=== PATIENT | female | born 2000 | race Caucasian/White ===

== ENCOUNTER 2022-05-20 21:34 | Emergency (ER) | payer SELFPAY ==
[2022-05-20 21:53] VITALS: BP 123/80; PULSE 88; RESP 18; TEMP 37; O2SAT 97; BMI 25.0
[2022-05-20 22:50] LABS: HCG Qualitative Urine. Negative (Negative)
[2022-05-20 23:07] LABS: Bilirubin Urine 1+ (Negative); Blood Urine 3+ (Negative); Glucose Urine UA Norm (Normal); Ketones Urine 2+ (Negative); Leukocyte Esterase Urine 2+ (Negative); Nitrate Urine Negative (Negative); Protein Urine 2+ (Negative); Urine Appearance Cloudy (CLEAR); Urine Color Dark Yellow (Yellow); Urobilinogen Urine 4 mg/dL (Negative); pH Urine 5 (5-7)
[2022-05-20 23:08] LABS: Add Urine Microscopic? YES; Bacteria Urine 2+ /hpf; Mucus Urine 1+ /hpf; RBC Urine TOO NUMEROUS TO CNT /hpf (0-2); WBC Urine 40-55 /hpf (0-5)
[2022-05-20 23:09] LABS: Add Urine Culture? No
[2022-05-20 23:15] LABS: Basophils % 0.2 %; Hematocrit 41.8 % (37.0-47.0); Hemoglobin 14.1 g/dL (11.5-15.3); Lymphocytes # 1.7 10^3/uL (1.5-6.5); Lymphocytes % 7.5 %; Mean Corpuscular HGB Conc 33.7 g/dL (30.0-36.0); Mean Corpuscular Volume 94.8 fl (81-99); Mean Platelet Volume 9.5 fL (7.4-10.4); Monocytes # 1.1 10^3/uL (0.2-0.9); Monocytes % 4.7 %; Neutrophils # 20.05 10^3/uL (1.8-8.0); Neutrophils % 87.1 %; Nucleated Red Blood Cells % 0 %; Platelet Count 242 10^3/cmm (130-400); Red Blood Count 4.41 10^6/uL (4.1-5.3); Red Cell Distribution Width 11.9 % (12.1-15.1)
[2022-05-20 23:37] LABS: Alanine Aminotransferase 7 U/L (0-33); Albumin Level 4.4 g/dL (3.5-5.2); Alkaline Phosphatase 83 U/L (35-105); Anion Gap 16.6 (5-19); Aspartate Amino Transferase 10 U/L (0-32); Blood Urea Nitrogen 9 mg/dL (6-20); Calcium 9.5 mg/dL (8.5-10.5); Carbon Dioxide 21 mmol/L (22-29); Chloride 101 mmol/L (98-107); Globulin 2.7 g/dL (1.3-4.6); Glomerular Filtration Rate 157.3 mL/min (90-130); Glucose 98 mg/dL (65-115); Lipase 8 U/L (13-60); Osmolality Calculated 279 mOsm/kg (285-295); Potassium 3.6 mmol/L (3.5-5.1); Sodium 135 mmol/L (136-145); Total Bilirubin 1.4 mg/dL (0.15-1.2); Total Protein 7.1 g/dL (6.6-8.7)
--- NOTE | 2022-05-20 23:41 | CTR_ITS ---
PROCEDURE INFORMATION: Exam: CT Abdomen And Pelvis With Contrast Exam date and time: 05/20/2022 11:59 PM Age: 21 years old Clinical indication: Abdominal pain; Additional info: Pain wbc over 20 TECHNIQUE: Imaging protocol: Computed tomography of the abdomen and pelvis with contrast. Radiation optimization: All CT scans at this facility use at least one of these dose optimization techniques: automated exposure control; mA and/or kV adjustment per patient size (includes targeted exams where dose is matched to clinical indication); or iterative reconstruction. Contrast material: OMNI 350; Contrast volume: 100 ml; Contrast route: INTRAVENOUS (IV); COMPARISON: No relevant prior studies available. RADIATION DOSE METRICS: Total DLP (mGy-cm): 439.68 FINDINGS: Lungs: The lung bases are clear. Liver: Unremarkable. Gallbladder and bile ducts: No definite gallbladder abnormality by CT. No biliary tree dilation. Pancreas: Unremarkable. Spleen: Unremarkable. Adrenal glands: Unremarkable. Kidneys and ureters: No hydronephrosis of either kidney. No visible ureteral calculus. 6 mm possible cyst in the lower left kidney, too small to accurately characterize by CT. The kidneys otherwise enhance homogeneously. No perinephric fluid. Stomach and bowel: Multiple small bowel loops are fluid-filled and/or borderline prominent in size. The overall appearance is not strongly suggestive of significant small bowel obstruction at this time. This appearance could be secondary to some form of gastroenteritis. Please correlate clinically. If there is clinical suspicion for small bowel obstruction, follow-up may be helpful to exclude progression. Appendix: The appendix is not identified with certainty, however no pericecal inflammatory changes are seen. Intraperitoneal space: No free intraperitoneal air, or ascites. Vasculature: No evidence for abdominal aortic aneurysm. Lymph nodes: No retroperitoneal adenopathy. Urinary bladder: Unremarkable as visualized. Reproductive: No definite abnormal ovarian/adnexal cyst or mass by CT. Bones/joints: No significant acute finding. Soft tissues: No significant acute finding. CT/CT abdomen pelvis w con* [id number] IMPRESSION: 1. Multiple small bowel loops are fluid-filled and/or borderline prominent in size, see above discussion. This appearance could be secondary to some form of gastroenteritis. 2. No evidence to suggest appendicitis, however a normal appendix is not definitely visible. See above discussion. 3. No free intraperitoneal air. 4. Other findings discussed above. COMMENTS: Consistent with the [employer]'s Incidental Findings Committee white paper (J Am Stephen Radiol 2018): Any incidental renal lesion less than 1 cm or classified as too small to characterize, or any incidental cystic renal lesion characterized as simple-appearing, is likely benign. No follow-up imaging is recommended for these lesions per consensus recommendations based on imaging criteria.
[2022-05-20] MEDS: iohexol 350 mg/mL 500 mL Btl (per mL) IV (23:46)
--- NOTE | 2022-05-21 00:05 | ED_ITS ---
HPI - Abdominal Pain General: Chief Complaint: Abdominal Pain Stated Complaint: abd pain Time Seen by Provider: 05/20/22 21:40 History of Present Illness: 21 yo female patient presents to ER with abd pain, nausea and vomiting since this am. Pt states its all over her abd. Pt denies any urinary symptoms or fever. Pt denies any back pain, cough or congestion. Pt states she is otherwise healthy. Associated Symptoms: Denies change in bowel habits, chills, constipation, GI cramping, diarrhea, dysuria, fever(s), hematuria, hematemesis and syncope Related Data: Date of Last Menstrual Period: 05/15/22 Review of Systems Const: Denies: fever(s), chills, body aches, change in appetite, change in weight, fatigue, malaise or diaphoresis Eyes: Denies: change in vision, blurry vision, blind spots, photophobia, eye discomfort, eye discharge, eye redness, floaters or seeing flashes ENMT: Denies: throat pain, uvular edema, enlarged tonsils, odynophagia, hoarseness, mouth pain, swelling of lips/tongue, oral sores, bleeding gums, dental pain, dry mouth, ear or mastoid pain, ear discharge, change in hearing, tinnitus, disequilibrium, nasal discharge, nasal congestion, post nasal drip or sinus pain Card: Denies: chest pain, palpitations, irregular heart rhythm, edema, swelling of feet/ankles, lightheadedness, syncope, pre-syncope, dyspnea on exertion, orthopnea, leg pain with exertion or acrocyanosis Resp: Denies: dyspnea, productive cough, non-productive cough, wheezing, stridor, pain on inspiration, change in phlegm color, hemoptysis or chest congestion GI: Denies: hematemesis, dysphagia, diarrhea, constipation, GI cramping, change in bowel habits or rectal pain : Denies: flank pain, difficulty voiding, dysuria, urinary frequency, urinary urgency, urinary hesitancy or hematuria Musc: Denies: neck pain, back pain, extremity pain, extremity swelling, joint pain, joint swelling, joint redness, joint warmth or deformity Skin/Breast: Denies: rash, pruritus, erythema, sores, new lesions, changes in skin color or dry skin Neuro: Denies: headache(s), numbness in extremities, weakness in extremities, sensory changes, lack of coordination, difficulty walking, frequent falls, dizziness, vertigo, confusion, behavioral changes, Slurred speech present, difficulty communicating thoughts or seizure-like activity Psych: Denies: anxiety, depression, suicidal ideation or homicidal ideation Endo: Denies: polyuria, polydipsia, tired all the time, cold intolerance, excessive sweating, flushing, hot flashes or heat intolerance Mir/Lymph: Denies: easy bruising, easy bleeding, petechiae, purpura, enlarged lymph nodes or tender lymph nodes All/Imm: Denies: urticaria, throat swelling, tongue swelling, facial swelling, acute wheezing or itchy eyes [facility] ED Female Reproductive History: Date of last menstrual period: 05/15/22 Physical Exam Const: COMMON NORMALS: no acute distress, average body habitus, patient oriented x3, no limitations, healthy appearing, alert and well nourished HENMT: THROAT: no uvular edema Lymph: LYMPHATIC: no lymphadenopathy noted Resp: COMMON NORMALS: normal respiratory effort Cardio: COMMON NORMALS: regular rate and regular rhythm RATE: regular rate RHYTHM: regular rhythm GI: COMMON NORMALS: Normal to inspection, nondistended, normoactive bowel sounds present and Soft to palpation; negative for non-tender PALPATION: Yes Soft to palpation : COMMON NORMALS: Yes no CVA tenderness BLADDER/KIDNEY EXAM: Yes no CVA tenderness Back/Pelvis: COMMON NORMALS: no CVA tenderness Neuro: COMMON NORMALS: patient oriented x3 SENSORIUM/ORIENTATION: Yes alert Psych: COMMON NORMALS: mental status grossly normal, Normal thought process present, cooperative, normal affect, speech normal and denies suicidal ideation SPEECH: Yes normal speech THOUGHT PROCESS: Normal thought process present Skin: NARRATIVE SKIN EXAM: pink warm and dry Course Vital Signs: Vital signs: Vital Signs Temperature 98.6 F 05/20/22 21:53 Pulse Rate 88 05/20/22 21:53 Respiratory Rate 18 05/20/22 21:53 Blood Pressure 123/80 05/20/22 21:53 Pulse Oximetry 97 05/20/22 21:53 Oxygen Delivery Me thod 05/20/22 21:53 MDM - Abdominal Pain Medical Decision Making Patient is well appearing non toxic and in no acute distress. 21 yo female patient presents to ER with abd pain, nausea and vomiting since this am. Pt states its all over her abd. Pt denies any urinary symptoms or fever. Pt denies any back pain, cough or congestion. Pt states she is otherwise healthy. Pts and is diffusely tender. I will order labs, urine and CT abd/pelvis. Pt is resting comfrotable. Likel the WBC 23.1 is reactive to her vomiting. pt is afebrile and findings are c/w gastroenetreitis. Will dc home with zofran and close return precautions Lab Data 05/20/22 23:07 05/20/22 23:07 Labs/Radiology: Radiology Impressions Abdomen/Pelvis CT 05/20/22 23:41 IMPRESSION: 1. Multiple small bowel loops are fluid-filled and/or borderline prominent in size, see above discussion. This appearance could be secondary to some form of gastroenteritis. 2. No evidence to suggest appendicitis, however a normal appendix is not definitely visible. See above discussion. 3. No free intraperitoneal air. 4. Other findings discussed above. COMMENTS: Consistent with the [employer]'s Incidental Findings Committee white paper (J Am Stephen Radiol 2018): Any incidental renal lesion less than 1 cm or classified as too small to characterize, or any incidental cystic renal lesion characterized as simple-appearing, is likely benign. No follow-up imaging is recommended for these lesions per consensus recommendations based on imaging criteria. Laboratory Results WBC 23.0 10^3/uL (4.5-13.0) H 05/20/22 23:07 RBC 4.41 10^6/uL (4.1-5.3) 05/20/22 23:07 Hgb 14.1 g/dL (11.5-15.3) 05/20/22 23: Hct 41.8 % (37.0-47.0) 05/20/22 23: MCV 94.8 fl (81-99) 05/20/22 23: MCH 32.0 pg (28.0-34.0) 05/20/22 23: MCHC 33.7 g/dL (30.0-36.0) 05/20/22 23: RDW 11.9 % (12.1-15.1) L 05/20/22 23: Plt Count 242 10^3/cmm (130-400) 05/20/22 23: MPV 9.5 fL (7.4-10.4) 05/20/22 23:07 Neut % (Auto) 87.1 % 05/20/22 23:07 Lymph % (Auto) 7.5 % 05/20/22 23:07 [place] % (Auto) 4.7 % 05/20/22 23:07 Eos % (Auto) 0.0 % 05/20/22 23:07 Baso % (Auto) 0.2 % 05/20/22 23:07 Neut # (Auto) 20.05 10^3/uL (1.8-8.0) H 05/20/22 23:07 Lymph # (Auto) 1.7 10^3/uL (1.5-6.5) 05/20/22 23:07 [place] # (Auto) 1.1 10^3/uL (0.2-0.9) H 05/20/22 23:07 Eos # (Auto) 0.0 10^3/uL (0.0-0.8) 05/20/22 23:07 Baso # (Auto) 0.0 10^3/uL (0.0-0.1) 05/20/22 23:07 Nucleated RBC % (auto) 0 % 05/20/22 23:07 Nucleated RBCs # 0.0 /100WBC 05/20/22 23:07 Sodium 135 mmol/L (136-145) L 05/20/22 23:07 Potassium 3.6 mmol/L (3.5-5.1) 05/20/22 23:07 Chloride 101 mmol/L (98-107) 05/20/22 23:07 Carbon Dioxide 21 mmol/L (22-29) L 05/20/22 23:07 Anion Gap 16.6 (5-19) 05/20/22 23:07 BUN 9 mg/dL (6-20) 05/20/22 23:07 Creatinine 0.5 mg/dL (0.5-0.9) 05/20/22 23:07 GFR Calculation 157.3 mL/min (90-130) H 05/20/22 23:07 Glucose 98 mg/dL (65-115) 05/20/22 23:07 Calculated Osmolality 279 mOsm/kg (285-295) L 05/20/22 23:07 Calcium 9.5 mg/dL (8.5-10.5) 05/20/22 23:07 Total Bilirubin 1.4 mg/dL (0.15-1.2) H 05/20/22 23:07 AST 10 U/L (0-32) 05/20/22 23:07 ALT 7 U/L (0-33) 05/20/22 23:07 Alkaline Phosphatase 83 U/L (35-105) 05/20/22 23:07 Total Protein 7.1 g/dL (6.6-8.7) 05/20/22 23:07 Albumin 4.4 g/dL (3.5-5.2) 05/20/22 23:07 Globulin 2.7 g/dL (1.3-4.6) 05/20/22 23:07 Lipase 8 U/L (13-60) L 05/20/22 23:07 HCG, Qual Negative (Negative) 05/20/22 22:28 Urine Color Dark yellow (Yellow) 05/20/22 22: Urine Appearance Cloudy (CLEAR) A 05/20/22 22: Urine pH 5 (5-7) 05/20/22 22:28 Ur Specific [place] 1.030 (1.005-1.030) 05/20/22 22: Urine Protein 2+ (Negative) H 05/20/22 22: Urine Glucose (UA) Norm (Normal) 05/20/22 22: Urine Ketones 2+ (Negative) H 05/20/22 22:28 Urine Blood 3+ (Negative) H 05/20/22 22:28 Urine Nitrate Negative (Negative) 05/20/22 22: Urine Bilirubin 1+ (Negative) H 05/20/22 22:28 Urine Urobilinogen 4 mg/dL (Negative) H 05/20/22 22:28 Ur Leukocyte Esterase 2+ (Negative) H 05/20/22 22:28 Urine RBC Too numerous to cnt /hpf (0-2) H 05/20/22 22: Urine WBC 40-55 /hpf (0-5) H 05/20/22 22:28 Ur Squamous Epith Cells 10-15 /hpf (0-5) H 05/20/22 22:28 Amorphous Sediment Not Reportable 05/20/22 22: Urine Bacteria 2+ /hpf (NONE) H 05/20/22 22:28 Urine Mucus 1+ /hpf 05/20/22 22:28 Discharge Plan Discharge Condition: Stable Referrals: Jacklyn Banuelos FNP [Family Provider] - Coding Level of Care Code ED Automotive Exhaust Emissions Technician for Chg Fwd Exam Detailed
== END 2022-05-21 01:17 | disposition home or self-care (01) ==
PROVIDERS: Emergency Provider Registered Nurse; Family Provider Registered Nurse General Practice
DX: R10.9 Unspecified abdominal pain (principal); R11.2 Nausea with vomiting, unspecified
CPT/HCPCS: 74177; 80053; 81001; 81025; 83690; 85025; 87086; 87491; 87591; 87661; 99285; Q9967

== ENCOUNTER 2022-05-21 18:26 | Emergency (ER) | payer OTHER, SELFPAY ==
[2022-05-21 18:50] VITALS: BP 151/101; PULSE 92; RESP 14; TEMP 36.8; O2SAT 98
--- NOTE | 2022-05-21 19:00 | ED_ITS ---
HPI - Recheck/Abnormal Lab/Rx General: Chief Complaint: Recheck/Abnormal Lab/Rx Stated Complaint: Er Called to come back Time Seen by Provider: 05/21/22 18:40 Source: patient Mode of arrival: ambulatory Limitations: no limitations History of Present Illness: 21-year-old female who was seen here yesterday for abdominal pain states she feels much improved and she has had no pain she was called back up because she tested positive for gonorrhea and chlamydia and needed treatment. She is got no pelvic pain at this time no vomiting no fever denies any worsening proving factors. Review of Systems Const: Denies: fever(s), chills, body aches or change in appetite Eyes: Denies: blurry vision or eye discomfort ENMT: Denies: throat pain or dental pain Card: Denies: chest pain Resp: Denies: dyspnea GI: Reports: abdominal pain : Denies: dysuria Musc: Denies: neck pain or back pain Skin/Breast: Denies: rash Neuro: Denies: headache(s) Psych: Denies: depression Mir/Lymph: Denies: easy bruising All/Imm: Denies: urticaria PFS ED PFSH: Medical History (Updated 05/21/22 @ 19:09 by Bryce Pool MD) No pertinent past medical history Social History (Updated 05/21/22 @ 19:09 by Bryce Pool MD) Substance/Drug Use: never Female Reproductive History: Date of last menstrual period: 05/15/22 Physical Exam Const: COMMON NORMALS: no acute distress, patient oriented x3 and healthy appearing HENMT: COMMON NORMALS: normocephalic and atraumatic HEAD & SCALP: normocephalic and atraumatic Eye: COMMON NORMALS: Equal, round and reactive pupils present and EOMs intact bilaterally PUPIL: Yes Equal, round and reactive pupils present Neck/C-Spine: COMMON NORMALS: full ROM and supple Chest: COMMONS NORMALS: normal inspection of the chest and normal palpation of entire chest wall Resp: COMMON NORMALS: normal respiratory effort, No retractions, No use of accessory muscles and clear to auscultation bilaterally AUSCULTATION: clear to auscultation bilaterally Cardio: COMMON NORMALS: regular rate, regular rhythm and No murmurs present (Cardio) RATE: regular rate RHYTHM: regular rhythm GI: COMMON NORMALS: Normal to inspection, nondistended, normoactive bowel sounds present, Soft to palpation, non-tender and no masses PALPATION: Yes Soft to palpation Extremity: COMMON NORMALS: normal to inspection and full ROM Neuro: COMMON NORMALS: patient oriented x3, moves all extremities and no focal motor deficits Psych: COMMON NORMALS: mental status grossly normal, Normal thought process present and cooperative THOUGHT PROCESS: Normal thought process present Skin: COMMON NORMALS: no rashes or lesions noted and no wounds GENERAL SKIN EXAM: no rashes or lesions noted Course Vital Signs: Vital signs: Vital Signs Temperature 98.3 F 05/21/22 18:50 Pulse Rate 92 05/21/22 18:50 Respiratory Rate 14 05/21/22 18:50 Blood Pressure 151/101 05/21/22 18:50 Pulse Oximetry 98 05/21/22 18:50 Oxygen Delivery Me thod 05/21/22 18:50 MDM - Recheck/Abnormal Lab/Rx Medical Decision Making Patient presents here with an STD was called back for treatment she is well- appearing here she no longer has any pain we will give her Rocephin and doxycycline she is to follow-up with her PCP and return if worsening. She has no signs of PID Discharge Plan Discharge Patient Disposition: Home Clinical Impression: STD (female) Condition: Stable Prescriptions: New doxycycline hyclate 100 mg tablet 100 mg PO BID 7 Days Qty: 14 0RF No Action ondansetron 4 mg tablet,disintegrating 4 mg PO TID 3 Days Qty: 9 0RF Discharge Orders: Discharge ED (Routine); Ordered 05/21/22 Ordered By: Bryce Pool Discharge Diet: Advance as tolerated Discharge Activity: Resume usual activity Patient Instructions: Sexually Transmitted Diseases (ED) Coding Level of Care Code ED Lens Grinding Machine Operator for Kelli Roper
[2022-05-21] MEDS: cefTRIAXone 1,000 mg SDV 500 MG IM (19:25)
== END 2022-05-21 19:31 | disposition home or self-care (01) ==
PROVIDERS: Emergency Provider Emergency Medicine
DX: A64 Unspecified sexually transmitted disease (principal)
CPT/HCPCS: 96372; 99284; J0696

== ENCOUNTER 2022-07-05 00:48 | Emergency (ER) | payer MEDICAID, SELFPAY ==
[2022-07-05 00:53] VITALS: BP 153/88; PULSE 93; RESP 18; TEMP 37.3; O2SAT 95; BMI 25.8
[2022-07-05 01:13] LABS: Rapid Strep A Test Negative (Negative)
[2022-07-05] MEDS: cefTRIAXone 1,000 MG in sodium chloride 0.9% (plus) 50 ML 100 MG IV (01:38)
[2022-07-05] MEDS: sodium chloride 0.9% 1,000 ML 999 ML IV (01:38)
[2022-07-05] MEDS: dexamethasone 10 mg/mL INJ IVP (01:38)
[2022-07-05] MEDS: ketorolac 30 mg/mL INJ 15 MG IVP (01:39)
--- NOTE | 2022-07-05 01:39 | ED_ITS ---
HPI - URI/Sore Throat General: Chief Complaint: Upper Respiratory Infection Stated Complaint: Sore Throat\Ears Hurt\Fever Time Seen by Provider: 07/05/22 00:56 Source: patient and family Mode of arrival: ambulatory Limitations: no limitations History of Present Illness: Patient presents emergency department today accompanied by her mother for evaluation treatment of approximately 3 days of sore throat and bilateral ear pain. Patient reports onset of fever today with associated nasal congestion. No significant cough. They have been trying [id number] medications but pain continues. Patient states she has tried salt water gargles but is now having difficulty swallowing due to increase in her pain. Associated symptoms: Reports ear or mastoid pain and nasal congestion Review of Systems General: Reports: 10 or more systems reviewed and unremarkable except in HPI and below ENMT: Reports: throat pain, enlarged tonsils, odynophagia, ear or mastoid pain and nasal congestion [facility] ED PFSH: Medical History No pertinent past medical history Female Reproductive History: Date of last menstrual period: 06/26/22 Physical Exam Const: COMMON NORMALS: no acute distress, patient oriented x3 and alert HENMT: OTHER: Patient's right ear is nonerythematous and without purulent accumulation. Slight bulging with excess fluid noted behind the eardrum. EAC clear. Left TM is dull with slight onset erythema and opaque fluid behind the eardrum. Eardrum is bulging. EACs clear. Pharynx is significantly erythematous and swollen but, uvula still midline without any unilateral tonsillar swelling. No significant accumulation of exudate. Mallampati 3. No stridor. Patient is talking without difficulty and has no hot potato voice . Patient is tolerating salivary secretions. Eye: COMMON NORMALS: Equal, round and reactive pupils present, EOMs intact bilaterally and conjunctivae normal CONJUNCTIVA: Yes conjunctivae normal PUPIL: Yes Equal, round and reactive pupils present Neck/C-Spine: COMMON NORMALS: no JVD Lymph: LYMPHATIC: no lymphadenopathy noted Resp: COMMON NORMALS: normal respiratory effort, No retractions and No use of accessory muscles Cardio: COMMON NORMALS: no JVD and regular rate RATE: regular rate : COMMON NORMALS: Yes no CVA tenderness BLADDER/KIDNEY EXAM: Yes no CVA tenderness Back/Pelvis: COMMON NORMALS: no CVA tenderness, thoracic and lumbar spine normal to inspection and thoraco-lumbar ROM normal Extremity: COMMON NORMALS: normal to inspection, full ROM and no pedal edema Neuro: COMMON NORMALS: patient oriented x3 SENSORIUM/ORIENTATION: Yes alert Skin: COMMON NORMALS: no rashes or lesions noted and turgor normal GENERAL SKIN EXAM: no rashes or lesions noted and turgor normal Course Vital Signs: Vital signs: Vital Signs Temperature 99.2 F 07/05/22 00:53 Pulse Rate 90 07/05/22 01:45 Respiratory Rate 14 07/05/22 01:45 Blood Pressure 148/88 07/05/22 01:45 Pulse Oximetry 99 07/05/22 01:45 Oxygen Delivery Me thod 07/05/22 00:53 MDM - URI/Sore Throat Medical Decision Making Patient's rapid strep test is negative. It is possible that the patient have mono however, she is only a few days into the illness and would test negative at this time anyways. However, she has onset of otitis media and would require treatment with antibiotics however, I did discuss concerns for treatment with the penicillin-based medication should she actually have mono. For that reason, patient was given Rocephin here in the ER if she indicates she is struggling to swallow. Patient is also given fluids as she reported issues over the last 24 hours with her oral intake. Patient was also treated with Toradol and Decadron IV. Patient noticed improvement of her symptoms and actually states she is feeling like she could finally sleep. Patient is treated with Omnicef for otitis media coverage and potential strep coverage but, will not interact with the possibility of a mono diagnosis should she continue to have symptoms for another week or so. Encouraged fluids, Tylenol, ibuprofen, salt water gargles, soft and cold foods. Strict return precautions were given. Differential Diagnosis Likely upper respiratory infection, otitis media, sinusitis, viral infection, bronchitis and pharyngitis Lab Data Laboratory Results Group A Strep Rapid Negative (Negative) 07/05/22 00:59 Discharge Plan Discharge Patient Disposition: Home Clinical Impression: Acute left otitis media, Pharyngitis, Fever Condition: Stable Prescriptions: New prednisone 20 mg tablet 20 mg PO BID 5 Days Qty: 10 0RF cefdinir 300 mg capsule 300 mg PO BID 10 Days Qty: 20 0RF Discharge Orders: Discharge ED (Routine); Ordered 07/05/22 Ordered By: Jessica Machado Discharge Diet: Advance as tolerated Discharge Activity: Increase activity as tolerated Patient Instructions: Otitis Media - Adult, Pharyngitis (ED) Activity Restrictions/Additional Instructions: Rapid strep test is negative today however, there are several other strains of strep which are not tested in the rapid strep swab. You have findings of an early onset left-sided ear infection as well. Your throat is red and swollen but I am not concerned for any signs of an abscess at this time. While it is possible you may have mononucleosis, this test is not positive for 1 to 2 weeks after onset of symptoms so, checking today would result in a possible false negative. However, if you are positive for mononucleosis you should not be on penicillin based antibiotics as this can cause a reaction. I am treating your ear infection with cefdinir. You received a dose of Rocephin here in the emergency department to start treatment tonight. I have also provided you a prescription for some steroids to help with throat inflammation and pain. Continue to take Tylenol and ibuprofen in addition to this medication to help. Continue using salt water gargles. Be sure you are drinking fluids-you may need to force yourself to try and drink but it is very important that you stay well- hydrated. Watch for any acute worsening in condition including one-sided throat swelling, difficulty breathing, inability to swallow your own saliva, or should symptoms worsen while on treatment. Coding Level of Care Code ED Branch Sales And Service Representative for Kelli Roper
[2022-07-05 01:45] VITALS: BP 148/88; PULSE 90; RESP 14; O2SAT 99
[2022-07-05 02:39] VITALS: BP 140/88; PULSE 84; RESP 18; O2SAT 95
== END 2022-07-05 02:40 | disposition home or self-care (01) ==
PROVIDERS: Emergency Provider Physician Assistant
DX: H66.92 Otitis media, unspecified, left ear (principal); J02.9 Acute pharyngitis, unspecified
CPT/HCPCS: 87081; 87880; 96365; 96375; 99284; J0696; J1100; J1885; J7030